=== PATIENT | male | born 1935 | race Caucasian/White ===

== ENCOUNTER 2024-05-21 09:24 | Outpatient (CLI) | payer MEDICARE, SELFPAY | END 2024-05-21 09:25 | disposition home or self-care (01) | LOC: INJ CL 09:27 | PROVIDERS: PCP Family Medicine; Visit Provider Family Medicine | DX: M54.16 Radiculopathy, lumbar region (principal); M48.061 Spinal stenosis, lumbar region without neurogenic claudication; M51.36 Other intervertebral disc degeneration, lumbar region | CPT/HCPCS: 62323; J0702; Q9966 ==